=== PATIENT | male | born 1980 | race Caucasian/White ===

== ENCOUNTER 2017-03-23 16:01 | Emergency (ER) | payer OTHER ==
[~2017-03-23] VITALS: Ht 167.6 cm; Wt 90.9 kg
[~2017-03-23 16:01] MED LIST: FLEXERIL 1010 MG/TAB PO; LEVAQUIN 5500 MG/TA1 PO; MUCINEX 60600 MG/TA1 PO; NO HOME MEDICATIONS; NORCO 325 MG-51 TAB PO; PHENERGAN W/CO120 ML PO; ZITHROMAX 250M250 MG PO; ZOFRAN ODT4 MG PO; ZYRTEC-D 5 MG-11 TER PO
[2017-03-23 16:03] VITALS: BP 123/60; TEMP 98.1
[2017-03-23] MEDS ORDERED: FLEXERIL 1010 MG/TAB PO (16:49)
[2017-03-23 17:08] VITALS: PULSE 63
== END 2017-03-23 17:09 | disposition home or self-care (01) ==
LOC: COL.ER 16:01
DX: M62.830 Muscle spasm of back (principal); M54.5 Low back pain
CPT/HCPCS: J2360

== ENCOUNTER 2017-03-27 13:30 | Emergency (ER) | payer OTHER ==
[~2017-03-27] VITALS: Ht 167.6 cm; Wt 90.9 kg
[2017-03-27 13:31] VITALS: BP 125/61; PULSE 65; TEMP 97.8
[2017-03-27] MEDS ORDERED: MEDROL 4MG DOSPA4 MG PO (14:08)
[2017-03-27] MEDS ORDERED: VALIUM 2MG T2 MG/TAB PO (14:08)
== END 2017-03-27 14:15 | disposition home or self-care (01) ==
LOC: COL.ER 13:30
DX: M54.16 Radiculopathy, lumbar region (principal); M62.830 Muscle spasm of back

== ENCOUNTER 2017-06-29 10:42 | Emergency (ER) | payer OTHER ==
[~2017-06-29] VITALS: Ht 167.6 cm; Wt 90.9 kg
[~2017-06-29 10:42] MED LIST changes: +MEDROL 4MG DOSPA4 MG PO; +VALIUM 2MG T2 MG/TAB PO
[2017-06-29 10:46] VITALS: BP 123/57; TEMP 97.8
[2017-06-29] MEDS ORDERED: ZOFRAN ODT4 MG PO (11:20)
[2017-06-29 11:52] LABS: INFLUENZA A NEGATIVE; INFLUENZA B NEGATIVE
[2017-06-29 12:06] VITALS: PULSE 70
== END 2017-06-29 12:09 | disposition home or self-care (01) ==
LOC: COL.ER 10:42
PROVIDERS: Physician Assistant
DX: B34.9 Viral infection, unspecified (principal)

== ENCOUNTER 2017-12-03 08:59 | Emergency (ER) | payer OTHER ==
[~2017-12-03] VITALS: Ht 167.6 cm; Wt 95.5 kg
[2017-12-03 09:04] VITALS: TEMP 97
[2017-12-03 09:35] LABS: BASO # 0.1 (0.0-0.2); BASO % 0.7 % (0.0-2.0); EOS # 0.2 (0.0-0.7); GRAN # 4.5 (1.4-6.5); GRAN % 59.3 % (42.2-75.2); LYMPH # 2.2 (1.2-3.4); LYMPH % 29.5 % (20.0-51.0); MEAN CELL VOLUME 91 fl (80.0-100.0); MEAN CORPUSCULAR HEMOGLOBIN 32 pg (27.0-31.0); MEAN CORPUSCULAR HGB CONC 35 g/dl (33.0-37.0); MEAN PLATELET VOLUME 9.8 fl (7.4-10.4); MONO # 0.6 (0.1-0.6); MONO % 8.2 % (1.7-9.3); PLATELET COUNT 220 K/mm3 (130-400); RED BLOOD COUNT 4.71 M/mm3 (4.20-5.60); REDCELL DISTRIBUTION WIDTH-CV 11.7 % (11.5-14.5)
[2017-12-03 09:45] LABS: ALANINE AMINOTRANSFERASE 29 U/L (21-72); ALBUMIN 4.3 gm/dL (3.5-5.0); ALKALINE PHOSPHATASE 79 U/L (50-136); ANION GAP 13 mmol/L (7-16); AST,SGOT 33 U/L (15-37); BILIRUBIN,TOTAL 0.6 mg/dL (0.0-1.0); BLOOD UREA NITROGEN 28 mg/dL (9-20); CALCIUM 9.6 mg/dL (8.4-10.2); CARBON DIOXIDE 27 mmol/L (22-30); CHLORIDE 102 mmol/L (98-107); CREATININE, serum 1.15 mg/dL (0.66-1.25); GLUCOSE 98 mg/dL (74-106); LIPASE 86 U/L (23-300); POTASSIUM 4.2 mmol/L (3.4-5.0); SODIUM 143 mmol/L (137-145)
[2017-12-03 09:55] LABS: C-REACTIVE PROTEIN < 0.5 mg/dL (0.0-0.9); TROPONIN-I < 0.012 ng/mL (0.000-0.034)
[2017-12-03] MEDS ORDERED: ZOFRAN 4MG T4 MG/TAB PO (10:16)
[2017-12-03 10:18] VITALS: BP 112/58; PULSE 53
== END 2017-12-03 10:28 | disposition home or self-care (01) ==
LOC: COL.ER 08:59
PROVIDERS: Emergency Medicine
DX: R07.89 Other chest pain (principal); R11.2 Nausea with vomiting, unspecified; R19.7 Diarrhea, unspecified

== ENCOUNTER 2018-02-03 16:13 | Emergency (ER) | payer OTHER ==
[~2018-02-03] VITALS: Ht 167.6 cm; Wt 95.5 kg
[~2018-02-03 16:13] MED LIST changes: +ZOFRAN 4MG T4 MG/TAB PO
[2018-02-03 16:22] VITALS: BP 126/64; TEMP 98.1
[2018-02-03 17:59] VITALS: PULSE 73
== END 2018-02-03 18:00 | disposition home or self-care (01) ==
LOC: COL.ER 16:13
DX: M72.2 Plantar fascial fibromatosis (principal)

== ENCOUNTER 2018-02-08 08:38 | Emergency (ER) | payer OTHER ==
[~2018-02-08] VITALS: Ht 167.6 cm; Wt 95.5 kg
[2018-02-08 08:41] VITALS: BP 116/68; TEMP 97.7
[2018-02-08 09:32] LABS: COLLECTION METHOD CLEAN CATCH
[2018-02-08 09:37] LABS: PH 7 (5-8); SQUAMOUS EPITHELIAL None Seen /hpf; URINE APPEARANCE Clear; URINE BACTERIA None Seen /hpf; URINE BILIRUBIN Negative (NEGATIVE); URINE BLOOD Negative (NEGATIVE); URINE COLOR Straw; URINE GLUCOSE Negative (NEGATIVE); URINE KETONE Negative (NEGATIVE); URINE LEUKOCYTE ESTERASE Negative (NEGATIVE); URINE NITRATE Negative (NEGATIVE); URINE PROTEIN(semi-quant) Negative (NEGATIVE); URINE RBC 0-2 /hpf; URINE UROBILINOGEN Negative (NEGATIVE)
[2018-02-08] MEDS ORDERED: FLEXERIL 1010 MG/TAB PO (09:58)
[2018-02-08] MEDS ORDERED: MOBIC 7.5MG7.5 MG PO (09:58)
[2018-02-08] MEDS ORDERED: PREDNISONE20 MG PO (09:58)
[2018-02-08 10:55] VITALS: PULSE 78
== END 2018-02-08 10:57 | disposition home or self-care (01) ==
LOC: COL.ER 08:38
PROVIDERS: Nurse Practitioner Primary Care
DX: M62.830 Muscle spasm of back (principal); M54.5 Low back pain
CPT/HCPCS: J1885; J2360